=== PATIENT | female | born 1985 | race Caucasian/White ===

== ENCOUNTER 2017-03-20 00:52 | Emergency (ER) | payer SELFPAY ==
[~2017-03-20] VITALS: Ht 170.2 cm; Wt 86.2 kg
[2017-03-20 00:52] VITALS: BP 125/60
[2017-03-20] MEDS ORDERED: methylPREDNISolone SOD SUCC PF 125 MG/2 ML VIAL. ONE (01:02)
[2017-03-20] MEDS ORDERED: diphenhydrAMINE 50 MG/ML VIAL ONE (01:02)
[2017-03-20] MEDS ORDERED: FAMOTIDINE 20 MG/2 ML VIAL ONE (01:03)
[2017-03-20] MEDS ORDERED: PRED50TA PO (01:13)
--- NOTE | 2017-03-20 01:14 | PHYS DOC ---
Adult General Chief Complaint Chief Complaint: SKIN PROBLEM HPI HPI 32-year-old female with a history of anxiety and idiopathic urticaria now presents the emergency department with an episode of idiopathic urticaria typical for her. Patient's experienced this multiple times before and been evaluated. It is typical for her that there is no identifiable cause and she cannot identify any allergic precipitant this evening. Patient felt well when she went to bed and then awoke with generalized hives which are itchy and burning. She has no throat swelling pain globus sensation difficulty with breathing speech changes or stridor. No known new or allergen exposures. Review of Systems Review of Systems Constitutional: Denies fever or chills [] Eyes: Denies change in visual acuity, redness, or eye pain [] HENT: Denies nasal congestion or sore throat [] Respiratory: Denies cough or shortness of breath [] Cardiovascular: No additional information not addressed in HPI [] GI: Denies abdominal pain, nausea, vomiting, bloody stools or diarrhea [] : Denies dysuria or hematuria [] Musculoskeletal: Denies back pain or joint pain [] Integument: As above Neurologic: Denies headache, focal weakness or sensory changes [] Endocrine: Denies polyuria or polydipsia [] All other systems were reviewed and found to be within normal limits, except as documented in this note. Current Medications Current Medications Current Medications Medications (Trade) Dose Ordered Sig/Anne Start Time Stop Time Status Last Admin Dose Admin Diphenhydramine HCl (Benadryl) 50 mg STK-MED ONCE 03/20/17 01:02 03/20/17 01:03 DC Famotidine (Pepcid Vial) 20 mg STK-MED ONCE 03/20/17 01:03 03/20/17 01:04 DC Methylprednisolone Sodium Succinate (SOLU-Medrol 125MG VIAL) 125 mg STK-MED ONCE 03/20/17 01:02 03/20/17 01:03 DC Allergies Allergies Allergies Coded Allergies Type Severity Reaction Last Updated Verified adhesive Allergy Unknown 03/20/17 Yes latex Allergy Unknown 03/20/17 Yes terbutaline Allergy Unknown 03/20/17 Yes Physical Exam Physical Exam Anxious appearing 32-year-old female with generalized hives. Normal voice no stridor normal oropharynx no wheezing Constitutional: Well developed, well nourished, no acute distress, non-toxic appearance. [] HENT: Normocephalic, atraumatic, bilateral external ears normal, oropharynx moist, no oral exudates, nose normal. [] Eyes: PERRLA, EOMI, conjunctiva normal, no discharge. [] Neck: Normal range of motion, no tenderness, supple, no stridor. [] Cardiovascular:Heart rate regular rhythm, no murmur [] Lungs & Thorax: Bilateral breath sounds clear to auscultation [] Abdomen: Bowel sounds normal, soft, no tenderness, no masses, no pulsatile masses. [] Skin: Warm, dry, hives as above Back: No tenderness, no CVA tenderness. [] Extremities: No tenderness, no cyanosis, no clubbing, ROM intact, no edema. [] Neurologic: Alert and oriented X 3, normal motor function, normal sensory function, no focal deficits noted. [] Psychologic: Affect normal, judgement normal, mood normal. [] EKG EKG [] Radiology/Procedures Radiology/Procedures [] Course & Med Decision Making Course & Med Decision Making Pertinent Labs and Imaging studies reviewed. (See chart for details) Signs and symptoms consistent with patient's chronic history of recurrent idiopathic urticaria. No allergic trigger identifiable. No evidence of airway involvement. Patient improved after Benadryl and Pepcid and steroids. Stable on reevaluation prior to discharge. No further workup or treatment indicated. Patient agrees with outpatient follow-up. She will take Benadryl and Pepcid as needed for symptoms and prednisone once a day for 5 days. Follow-up PCP 1 day. Strict return precautions will be given Dragon Disclaimer Dragon Disclaimer This electronic medical record was generated, in whole or in part, using a voice recognition dictation system. Departure Departure: Impression: Primary Impression: Urticaria of unknown origin Additional Impression: Anxiety Disposition: 01 HOME, SELF-CARE Condition: IMPROVED Referrals: PCP,NO (PCP) Patient Instructions: Hives Additional Instructions: You have experienced another episode of idiopathic urticaria at this evening. As we discussed this refers to hives, the cause of which is not able to be identified. Take Benadryl 50 mg every 4-6 hours and Pepcid 20 mg twice a day as needed for hives and itching/running. Finish prednisone as prescribed once a day for 5 more days starting tomorrow. Follow-up with your doctor for reevaluation in 1-2 days and return immediately for signs of airway involvement ,new, severe, or worsening symptoms Scripts Prednisone (PREDNISONE) 50 Mg Tablet 1 TAB PO DAILY for 5 Days, #5 TAB Prov: GREGORIA MAHONEY MD 03/20/17 Problem Qualifiers GREGORIA MAHONEY MD Mar 20, 2017 01:13
[2017-03-20] MEDS ORDERED: FAMOTIDINE 20 MG/2 ML VIAL IVP ONE (01:30)
[2017-03-20] MEDS ORDERED: diphenhydrAMINE 50 MG/ML VIAL IVP ONE (01:30)
[2017-03-20] MEDS ORDERED: methylPREDNISolone SOD SUCC PF 125 MG/2 ML VIAL. IV ONE (01:30)
== END 2017-03-20 01:50 | disposition home or self-care (01) ==
LOC: ER 00:52
DX: L50.1 Idiopathic urticaria (principal); F41.9 Anxiety disorder, unspecified; Z88.8 Allergy status to other drugs, medicaments and biological substances; Z91.040 Latex allergy status
CPT/HCPCS: 96374; 96375; 99284; J1200; J2930; S0028

== ENCOUNTER 2017-05-05 10:26 | Emergency (ER) | payer OTHER ==
[~2017-05-05] VITALS: Ht 167.6 cm; Wt 104.3 kg
[~2017-05-05 10:26] MED LIST: PRED50TA PO
[2017-05-05 11:16] LABS: BASO % 1 % (0-3); EOS # 0.2 x10^3/uL (0.0-0.7); EOS % 3 % (0-3); HEMATOCRIT 34.8 % (36.0-47.0); HEMOGLOBIN 11.3 g/dL (12.0-15.5); LYMPH # 2.2 x10^3/uL (1.0-4.8); LYMPH % 33 % (24-48); MEAN CORPUSCULAR HEMOGLOBIN 26 pg (25-35); MEAN CORPUSCULAR HGB CONC 33 g/dL (31-37); MEAN CORPUSCULAR VOLUME 79 fL (79-100); MONO # 0.4 x10^3/uL (0.0-1.1); MONO % 6 % (0-9); NEUT # 3.8 x10^3uL (1.8-7.7); NEUT % 56 % (31-73); PLATELET COUNT 238 x10^3/uL (140-400); RED BLOOD COUNT 4.42 x10^6/uL (3.50-5.40); RED CELL DISTRIBUTION WIDTH 17.9 % (11.5-14.5); WHITE BLOOD COUNT 6.7 x10^3/uL (4.0-11.0)
[2017-05-05 11:27] LABS: ALBUMIN 2.9 g/dL (3.4-5.0); ALBUMIN/GLOBULIN RATIO 0.9 (1.0-1.7); CALCIUM 7.8 mg/dL (8.5-10.1); CREATININE 0.8 mg/dL (0.6-1.0); GFR 82.6; POTASSIUM 3.4 mmol/L (3.5-5.1); TOTAL BILIRUBIN 0.2 mg/dL (0.2-1.0); TOTAL PROTEIN 6.2 g/dL (6.4-8.2)
[2017-05-05] MEDS ORDERED: ONDANSETRON PF 4 MG/2 ML VIAL. IV ONE (11:30)
--- NOTE | 2017-05-05 12:01 | RAD ---
Obstetric pelvic ultrasound 05/05/2017 Indication: Cramping and bleeding in . LMP 01/30/2017. History of right tubal ectopic . Comparison: None available. Technique: Sonographic evaluation of the pelvis is performed utilizing transabdominal and transvaginal imaging. Grayscale, color Doppler and spectral waveform analysis was utilized. Findings: The uterus measures 15.2 x 6.9 x 11.4 cm. Cervix measures 5.5 cm. A single intrauterine gestational sac is identified with a pole and crown-rump length of 5.7 cm compatible with a gestational age of 12 weeks and 2 days. EDC by sonogram is 11/15/2017. heart tones measured at 163 bpm. There is a complex hypoechoic collection suggestive of a moderate to large sized subchorionic hemorrhage. Right ovary is surgically absent. No right adnexal mass is identified. Left ovary measures 4.6 x 3.8 x 2.9 cm. Arterial and venous waveform identified at the time of imaging. There is no free fluid within the pelvis. Impression: 1. Single intrauterine gestation with crown-rump length compatible with a gestational age of 12 weeks and 2 days. EDC by sonogram is 11/15/2017. There is a moderate to large sized subchorionic hemorrhage. Short-term follow-up with ultrasound may be of benefit. heart tones measure 163 bpm. 2. Right ovary is surgically absent. Left ovary is within normal limits.
--- NOTE | 2017-05-05 12:15 | ED.ADGEN ---
Past History Past Medical History: Anxiety, Seizure Past Surgical History: No Surgical History, Appendectomy, Tonsillectomy Alcohol Use: None Drug Use: None Adult General Chief Complaint Chief Complaint Vaginal bleeding and HPI HPI Patient is a G8, P4, estimated 12 weeks gestation female who presents with vaginal bleeding has an large clots since last night. No dizziness lightheadedness. Reports pelvic pain and cramping. No nausea vomiting. No fevers chills or sweats. No other acute symptoms or care. Patient has not yet established care and [place]. [] Review of Systems Review of Systems Review of symptoms as per history of present illness. All other systems were reviewed and found to be within normal limits, except as documented in this note. Current Medications Current Medications Current Medications Medications (Trade) Dose Ordered Sig/Anne Start Time Stop Time Status Last Admin Dose Admin Fentanyl Citrate (Fentanyl 2ml Vial) 50 mcg 1X ONCE 05/05/17 11:30 05/05/17 11:31 DC 05/05/17 11:44 50 MCG Ondansetron HCl (Zofran) 4 mg 1X ONCE 05/05/17 11:30 05/05/17 11:31 DC Allergies Allergies Allergies Coded Allergies Type Severity Reaction Last Updated Verified adhesive Allergy Intermediate 03/20/17 Yes latex Allergy Intermediate 03/20/17 Yes terbutaline Allergy Intermediate 03/20/17 Yes Physical Exam Physical Exam Constitutional: Well developed, well nourished, no acute distress, non-toxic appearance. [] HENT: Normocephalic, atraumatic, bilateral external ears normal, nose normal. [] Eyes: PERRLA, EOMI, conjunctiva normal, no discharge. [] Neck: Normal range of motion, no tenderness, supple, no stridor. [] Cardiovascular:Heart rate regular rhythm, no murmur [] Lungs & Thorax: Bilateral breath sounds clear to auscultation [] Abdomen: Bowel sounds normal, soft, no tenderness, no masses, no pulsatile masses. [] : min of light red red blood on exam. Os closed.[] Back: No tenderness, no CVA tenderness. [] Psychologic: Affect normal, judgement normal, mood normal. [] Current Patient Data Vital Signs Vital Signs Date Time Temp Pulse Resp B/P (MAP) Pulse Ox O2 Delivery O2 Flow Rate FiO2 05/05/17 11:44 20 95 05/05/17 11:08 98.3 82 Room Air Lab Results Laboratory Tests Test 05/05/17 11:00 White Blood Count 6.7 x10^3/uL (4.0-11.0) Red Blood Count 4.42 x10^6/uL (3.50-5.40) Hemoglobin 11.3 g/dL (12.0-15.5) L Hematocrit 34.8 % (36.0-47.0) L Mean Corpuscular Volume 79 fL (79-100) Mean Corpuscular Hemoglobin 26 pg (25-35) Mean Corpuscular Hemoglobin Concent 33 g/dL (31-37) Red Cell Distribution Width 17.9 % (11.5-14.5) H Platelet Count 238 x10^3/uL (140-400) Neutrophils (%) (Auto) 56 % (31-73) Lymphocytes (%) (Auto) 33 % (24-48) Monocytes (%) (Auto) 6 % (0-9) Eosinophils (%) (Auto) 3 % (0-3) Basophils (%) (Auto) 1 % (0-3) Neutrophils # (Auto) 3.8 x10^3uL (1.8-7.7) Lymphocytes # (Auto) 2.2 x10^3/uL (1.0-4.8) Monocytes # (Auto) 0.4 x10^3/uL (0.0-1.1) Eosinophils # (Auto) 0.2 x10^3/uL (0.0-0.7) Basophils # (Auto) 0.0 x10^3/uL (0.0-0.2) Maternal Serum HCG Beta Subunit 42555 mIU/mL (0-6) H Sodium Level 139 mmol/L (136-145) Potassium Level 3.4 mmol/L (3.5-5.1) L Chloride Level 105 mmol/L (98-107) Carbon Dioxide Level 22 mmol/L (21-32) Anion Gap 12 (6-14) Blood Urea Nitrogen 4 mg/dL (7-20) L Creatinine 0.8 mg/dL (0.6-1.0) Estimated GFR (Cockcroft-Gault) 82.6 BUN/Creatinine Ratio 5 (6-20) L Glucose Level 83 mg/dL (70-99) Calcium Level 7.8 mg/dL (8.5-10.1) L Total Bilirubin 0.2 mg/dL (0.2-1.0) Aspartate Amino Transferase (AST) 14 U/L (15-37) L Alanine Aminotransferase (ALT) 18 U/L (14-59) Alkaline Phosphatase 40 U/L (46-116) L Total Protein 6.2 g/dL (6.4-8.2) L Albumin 2.9 g/dL (3.4-5.0) L Albumin/Globulin Ratio 0.9 (1.0-1.7) L EKG EKG [] Radiology/Procedures Radiology/Procedures [US: Viable 12 week IUP with heart tones, moderate to large subchorionic hemorrhage per radiology report. ] Course & Med Decision Making Course & Med Decision Making Pertinent Labs and Imaging studies reviewed. (See chart for details) [Threatened miscarriage. Vitals, H&H stable. Rhogam given. OB f/u. Return precautions given. Patient verbalizes understanding agreement prior to discharge. ] Final Impression Final Impression [1. threatened Ab] Problems: Dragon Disclaimer Dragon Disclaimer This electronic medical record was generated, in whole or in part, using a voice recognition dictation system. DAVID EM DO May 05, 2017 12:15
[2017-05-05 12:31] VITALS: BP 140/77
== END 2017-05-05 14:00 | disposition home or self-care (01) ==
LOC: ER 10:26
DX: O20.0 Threatened abortion (principal); O99.341 Other mental disorders complicating pregnancy, first trimester; F41.9 Anxiety disorder, unspecified; Z3A.12 12 weeks gestation of pregnancy; Z88.8 Allergy status to other drugs, medicaments and biological substances; Z91.040 Latex allergy status
CPT/HCPCS: 36415; 76801; 80053; 84702; 85025; 86850; 86900; 86901; 96374; 99285; J2791; J3010